=== PATIENT | female | born 1995 | race Caucasian/White ===

== ENCOUNTER 2019-11-03 09:14 | Emergency (ER) | payer SELFPAY ==
[~2019-11-03] VITALS: Ht 162.6 cm; Wt 61.7 kg
[2019-11-03 09:19] VITALS: BP_SYST 110
--- NOTE | 2019-11-03 09:23 | NUR ---
pt to wr
--- NOTE | 2019-11-03 09:40 | NUR ---
pt arrives from home w/ c/o cough, congestion, fever x 3 days. Lung sounds are clear upon auscultation. Will continue to monitor.
--- NOTE | 2019-11-03 09:45 | NUR ---
flu swab collected and sent to the lab
--- NOTE | 2019-11-03 10:01 | NUR ---
ER at bedside examining patient.
--- NOTE | 2019-11-03 10:20 | NUR ---
Patient given written and verbal discharge instructions and verbalizes understanding. ER MD discussed with patient the results and treatment provided. Patient in stable condition. ID arm band removed. Rx of Tamiflu and Motrin given. Patient educated on pain management and to follow up with PMD. Pain Scale 0/10. Opportunity for questions provided and answered. Medication side effect fact sheet provided.
== END 2019-11-03 10:20 | disposition home or self-care (01) ==
LOC: SED 09:14
DX: J11.1 Influenza due to unidentified influenza virus with other respiratory manifestations (principal)
CPT/HCPCS: 99283